=== PATIENT | female | born 1990 ===

== ENCOUNTER 2021-01-19 23:03 | Emergency (ER) | payer SELFPAY ==
[~2021-01-19] VITALS: Ht 175.3 cm; Wt 78.3 kg
[2021-01-19 23:22] VITALS: BP 120/90
--- NOTE | 2021-01-20 00:40 | NUR ---
CALLED IN THE LOBBY, NO ANSWER
--- NOTE | 2021-01-20 01:00 | NUR ---
CALLED IN THE LOBBY, NO ANSWER
--- NOTE | 2021-01-20 01:31 | NUR ---
CALLED IN THE LOBBY, NO ANSWER
== END 2021-01-20 01:37 | disposition left against medical advice (07) ==
LOC: ED 23:40
DX: R10.2 Pelvic and perineal pain (principal)
CPT/HCPCS: 99281